=== PATIENT | female | born 1965 | race Caucasian/White ===

== ENCOUNTER 2019-07-01 17:49 | Inpatient (IN) | payer BC ==
[~2019-07-01] VITALS: Ht 165.1 cm; Wt 103.9 kg
[2019-07-01 20:05] VITALS: BP 130/67
[2019-07-01 23:51] VITALS: BP 101/55
[2019-07-02 03:32] VITALS: BP 116/72
[2019-07-02] MEDS ORDERED: ACETAMINOPHEN 325 MG TABLET. PO PRN (06:15)
[2019-07-02] MEDS ORDERED: MAG HYDROX/ALUMINUM HYD/SIMETH 30 ML ORAL.SUSP PO PRN (06:15)
[2019-07-02] MEDS ORDERED: ONDANSETRON PF 4 MG/2 ML VIAL. IVP PRN (06:15)
[2019-07-02] MEDS ORDERED: ALBUTEROL SULFATE 2.5 MG/3 ML NEBU. NEB PRN (06:15)
[2019-07-02] MEDS ORDERED: HYDR-2145 PO (06:39)
[2019-07-02] MEDS ORDERED: LISI-130 PO (06:39)
[2019-07-02] MEDS ORDERED: ALBU2.5V14 NEB (06:39)
[2019-07-02] MEDS ORDERED: LORA10TA3 PO (06:39)
[2019-07-02] MEDS ORDERED: AMLO10TA8 PO (06:39)
[2019-07-02 07:00] VITALS: BP 139/78
[2019-07-02] MEDS ORDERED: IV RINGERS,LACTATED 1000ML 1,000 ML IV SCH (07:33)
[2019-07-02 07:43] LABS: BASO # 0.1 x10^3/uL (0.0-0.2); BASO % 1 % (0-3); EOS # 0.2 x10^3/uL (0.0-0.7); EOS % 1 % (0-3); HEMATOCRIT 34.8 % (36.0-47.0); HEMOGLOBIN 11.4 g/dL (12.0-15.5); LYMPH # 1.9 x10^3/uL (1.0-4.8); LYMPH % 12 % (24-48); MEAN CORPUSCULAR HEMOGLOBIN 29 pg (25-35); MEAN CORPUSCULAR HGB CONC 33 g/dL (31-37); MEAN CORPUSCULAR VOLUME 88 fL (79-100); MONO # 1.3 x10^3/uL (0.0-1.1); MONO % 8 % (0-9); NEUT # 12.7 x10^3/uL (1.8-7.7); NEUT % 78 % (31-73); PLATELET COUNT 709 x10^3/uL (140-400); RED BLOOD COUNT 3.98 x10^6/uL (3.50-5.40); RED CELL DISTRIBUTION WIDTH 14.5 % (11.5-14.5); WHITE BLOOD COUNT 16.2 x10^3/uL (4.0-11.0)
[2019-07-02] MEDS ORDERED: MORPHINE SULFATE 2 MG/ML VIAL. IV PRN (07:45)
[2019-07-02] MEDS ORDERED: HYDROmorphone 2 MG/ML VIAL IV PRN (07:45)
[2019-07-02] MEDS ORDERED: fentaNYL PF VIAL 100 MCG/2 ML VIAL IV PRN ×2 (07:45)
[2019-07-02] MEDS ORDERED: PROCHLORPERAZINE 10 MG/2 ML VIAL. IV PRN (07:45)
[2019-07-02] MEDS: IPRATRPIUM/ALBUTEROL 0.5/2.5MG 3 ML NEBU. NEB SCH ×4 (08:00→20:42)
[2019-07-02 08:02] LABS: ALBUMIN 1.7 g/dL (3.4-5.0); ALBUMIN/GLOBULIN RATIO 0.3 (1.0-1.7); CALCIUM 8.9 mg/dL (8.5-10.1); CREATININE 0.8 mg/dL (0.6-1.0); GFR 74.5; POTASSIUM 4.7 mmol/L (3.5-5.1); TOTAL BILIRUBIN 0.2 mg/dL (0.2-1.0); TOTAL PROTEIN 7.4 g/dL (6.4-8.2)
[2019-07-02 08:28] LABS: % BANDS 1 % (0-9); % EOS 2 % (0-5); % LYMPHS 14 % (24-48); % MONOS 6 % (0-10); % SEGS 77 % (35-66)
[2019-07-02 08:29] LABS: PLT ESTIMATE INCREASED (ADEQUATE)
[2019-07-02 08:30] LABS: POIKILOCYTOSIS SLIGHT; POLYCHROMASIA PRESENT
[2019-07-02] MEDS ORDERED: LIDOCAINE 1% Multi-Dose 20 ML VIAL. INJ PRN (08:30)
[2019-07-02] MEDS ORDERED: EPINEPHrine 1 MG/ML VIAL INJ PRN (08:30)
[2019-07-02] MEDS ORDERED: LIDOCAINE 2% VISCOUS 100 ML BOTTLE. MM PRN (08:30)
[2019-07-02] MEDS ORDERED: LIDOCAINE 4% TOPICAL 50 ML SOLUTION. MM PRN (08:30)
[2019-07-02] MEDS: VENLAFAXINE 75 MG TABLET. PO SCH ×3 (09:00→21:44)
[2019-07-02] MEDS: hydroCHLOROthiazide 25 MG TABLET PO SCH (09:00)
[2019-07-02] MEDS: MEROPENEM 1 GM in IV NORMAL SALINE 100ML 100 ML IV SCH ×3 (10:14→21:43)
[2019-07-02] MEDS ORDERED: LIDOCAINE 1% Multi-Dose 20 ML VIAL. ONE (10:16)
[2019-07-02] MEDS ORDERED: LIDOCAINE 4% TOPICAL 50 ML SOLUTION. ONE (10:16)
[2019-07-02] MEDS ORDERED: EPINEPHrine 1 MG/ML VIAL ONE (10:16)
[2019-07-02] MEDS ORDERED: LIDOCAINE 2% VISCOUS 100 ML BOTTLE. ONE (10:16)
[2019-07-02] MEDS ORDERED: PROPOFOL 20 ML IV ONE (11:18)
[2019-07-02] MEDS: IV RINGERS,LACTATED 1000ML 1,000 ML IV SCH ×2 (11:20→21:15)
--- NOTE | 2019-07-02 11:26 | NUR ---
SW following pt for dc planning. Chart reviewed. Pt lives at home with family. No notes to review at this time. SW will be available as needed.
--- NOTE | 2019-07-02 12:18 | PDOC ---
PULMONARY PROGRESS NOTES Vitals Vital Signs Date Time Temp Pulse Resp B/P (MAP) Pulse Ox O2 Delivery O2 Flow Rate FiO2 07/02/19 12:02 97.8 101 20 115/65 93 Simple Mask 10 97.8 Labs Laboratory Tests Test 07/02/19 07:25 White Blood Count 16.2 x10^3/uL (4.0-11.0) Red Blood Count 3.98 x10^6/uL (3.50-5.40) Hemoglobin 11.4 g/dL (12.0-15.5) Hematocrit 34.8 % (36.0-47.0) Mean Corpuscular Volume 88 fL (79-100) Mean Corpuscular Hemoglobin 29 pg (25-35) Mean Corpuscular Hemoglobin Concent 33 g/dL (31-37) Red Cell Distribution Width 14.5 % (11.5-14.5) Platelet Count 709 x10^3/uL (140-400) Neutrophils (%) (Auto) 78 % (31-73) Lymphocytes (%) (Auto) 12 % (24-48) Monocytes (%) (Auto) 8 % (0-9) Eosinophils (%) (Auto) 1 % (0-3) Basophils (%) (Auto) 1 % (0-3) Neutrophils # (Auto) 12.7 x10^3/uL (1.8-7.7) Lymphocytes # (Auto) 1.9 x10^3/uL (1.0-4.8) Monocytes # (Auto) 1.3 x10^3/uL (0.0-1.1) Eosinophils # (Auto) 0.2 x10^3/uL (0.0-0.7) Basophils # (Auto) 0.1 x10^3/uL (0.0-0.2) Segmented Neutrophils % 77 % (35-66) Band Neutrophils % 1 % (0-9) Lymphocytes % 14 % (24-48) Monocytes % 6 % (0-10) Eosinophils % 2 % (0-5) Platelet Estimate Increased (ADEQUATE) Polychromasia Present Poikilocytosis Slight Prothrombin Time 13.0 SEC (11.7-14.0) Prothromb Time International Ratio 1.0 (0.8-1.1) Activated Partial Thromboplast Time 28 SEC (24-38) Sodium Level 142 mmol/L (136-145) Potassium Level 4.7 mmol/L (3.5-5.1) Chloride Level 99 mmol/L (98-107) Carbon Dioxide Level 38 mmol/L (21-32) Anion Gap 5 (6-14) Blood Urea Nitrogen 14 mg/dL (7-20) Creatinine 0.8 mg/dL (0.6-1.0) Estimated GFR (Cockcroft-Gault) 74.5 BUN/Creatinine Ratio 18 (6-20) Glucose Level 96 mg/dL (70-99) Calcium Level 8.9 mg/dL (8.5-10.1) Total Bilirubin 0.2 mg/dL (0.2-1.0) Aspartate Amino Transf (AST/SGOT) 66 U/L (15-37) Alanine Aminotransferase (ALT/SGPT) 114 U/L (14-59) Alkaline Phosphatase 255 U/L (46-116) Total Protein 7.4 g/dL (6.4-8.2) Albumin 1.7 g/dL (3.4-5.0) Albumin/Globulin Ratio 0.3 (1.0-1.7) Laboratory Tests Test 07/02/19 07:25 White Blood Count 16.2 x10^3/uL (4.0-11.0) Red Blood Count 3.98 x10^6/uL (3.50-5.40) Hemoglobin 11.4 g/dL (12.0-15.5) Hematocrit 34.8 % (36.0-47.0) Mean Corpuscular Volume 88 fL (79-100) Mean Corpuscular Hemoglobin 29 pg (25-35) Mean Corpuscular Hemoglobin Concent 33 g/dL (31-37) Red Cell Distribution Width 14.5 % (11.5-14.5) Platelet Count 709 x10^3/uL (140-400) Neutrophils (%) (Auto) 78 % (31-73) Lymphocytes (%) (Auto) 12 % (24-48) Monocytes (%) (Auto) 8 % (0-9) Eosinophils (%) (Auto) 1 % (0-3) Basophils (%) (Auto) 1 % (0-3) Neutrophils # (Auto) 12.7 x10^3/uL (1.8-7.7) Lymphocytes # (Auto) 1.9 x10^3/uL (1.0-4.8) Monocytes # (Auto) 1.3 x10^3/uL (0.0-1.1) Eosinophils # (Auto) 0.2 x10^3/uL (0.0-0.7) Basophils # (Auto) 0.1 x10^3/uL (0.0-0.2) Segmented Neutrophils % 77 % (35-66) Band Neutrophils % 1 % (0-9) Lymphocytes % 14 % (24-48) Monocytes % 6 % (0-10) Eosinophils % 2 % (0-5) Platelet Estimate Increased (ADEQUATE) Polychromasia Present Poikilocytosis Slight Prothrombin Time 13.0 SEC (11.7-14.0) Prothromb Time International Ratio 1.0 (0.8-1.1) Activated Partial Thromboplast Time 28 SEC (24-38) Sodium Level 142 mmol/L (136-145) Potassium Level 4.7 mmol/L (3.5-5.1) Chloride Level 99 mmol/L (98-107) Carbon Dioxide Level 38 mmol/L (21-32) Anion Gap 5 (6-14) Blood Urea Nitrogen 14 mg/dL (7-20) Creatinine 0.8 mg/dL (0.6-1.0) Estimated GFR (Cockcroft-Gault) 74.5 BUN/Creatinine Ratio 18 (6-20) Glucose Level 96 mg/dL (70-99) Calcium Level 8.9 mg/dL (8.5-10.1) Total Bilirubin 0.2 mg/dL (0.2-1.0) Aspartate Amino Transf (AST/SGOT) 66 U/L (15-37) Alanine Aminotransferase (ALT/SGPT) 114 U/L (14-59) Alkaline Phosphatase 255 U/L (46-116) Total Protein 7.4 g/dL (6.4-8.2) Albumin 1.7 g/dL (3.4-5.0) Albumin/Globulin Ratio 0.3 (1.0-1.7) Medications Active Scripts Medications Dose Route/Sig Max Daily Dose Days Date Category Loratadine 10 Mg Tablet 10 Mg PO DAILY PRN 07/02/19 Reported Lisinopril 40 Mg Tablet 40 Mg PO DAILY 07/02/19 Reported Hydrochlorothiazide Tablet (Hydrochlorothiazide) 25 Mg Tablet 25 Mg PO DAILY 07/02/19 Reported Amlodipine Besylate 10 Mg Tablet 10 Mg PO DAILY 07/02/19 Reported Albuterol Sulfate Conc Neb Soln (Albuterol Sulfate) 2.5 Mg/0.5 Ml Vial.neb 2.5 Mg NEB Q6HRS 07/02/19 Reported Impression . FULL NOTE DICTATED WILL PROCEED WITH BRONCH AGREE WITH CURRENT RX FOR POST OB PNEUMONIA MILADY STRONG MD Jul 02, 2019 12:18
--- NOTE | 2019-07-02 12:23 | PDOC4 ---
PROCEDURE Procedure BRONCH/KEYES NEEDLE/FORCEPS BX/BAL FINDINGS ENDOBROCHIAL LESION MIRANDA FUNGATING WHITE IN COLOR SOME MUCUS SURROUNDING THE LESION CLEAR AIRWAYS ON RIGHT WILL AWAIT CYTOPATHOLOGY REPORT SUSPECT NON SMALL CELL CA NO COMPLICATIONS MILADY STRONG MD Jul 02, 2019 12:23
--- NOTE | 2019-07-02 12:36 | OP ---
DATE OF SURGERY: 07/02/2019 ATTENDING PHYSICIAN: Abdi Armstrong MD PROCEDURE: Bronchoscopy, Flores needle aspiration of a left upper lobe endobronchial lesion, multiple forceps biopsy taken from the same spot, plus lavage. INDICATIONS: The patient presented with an abnormal CT chest revealing possible left upper lobe endobronchial lesion, undergoing a diagnostic bronchoscopy. Risks, benefits, and alternatives reviewed with the patient. She consented. DESCRIPTION OF PROCEDURE: Timeout was performed prior to sedation. The patient was sedated by Anesthesia. O2 saturation and vital signs were maintained within normal limits throughout the procedure. The bronchoscope was passed through the left naris. The bronchoscope was advanced through the vocal cords, which appeared to be normal in function and nature. The vocal cords were anesthetized with a total of 5 mL of 4% lidocaine. The bronchoscope was then passed through the vocal cords into the proximal trachea which was normal. The distal trachea was likewise normal. The right segments and subsegments were visualized. There were no endobronchial lesions. Upon inspecting the left side, there was a total occlusion of the left upper lobe bronchus with a white fungating mass. Multiple biopsies were performed. Initially, I performed one Flores needle aspirate then utilized a forceps biopsy to obtain approximately 4-5 bites. The patient tolerated procedure well with no immediate complications. A lavage of the same area was performed. FINDINGS: 1. Normal vocal cords. 2. Endobronchial lesion obstructing the left upper lobe bronchus. Multiple biopsies performed. See above. 3. No endobronchial lesion on the right. 4. Minimal mucosa surrounding the endobronchial lesion that was aspirated back. PLAN: We will await the cytopathology report along with blood cultures. MILADY STRONG MD DR: TENA/tiarra JOB#: [id number] / [id number]
--- NOTE | 2019-07-02 13:39 | HP ---
ADMIT DATE: 07/01/2019 HISTORY OF PRESENT ILLNESS: The patient is a 54-year-old female patient, who was admitted directly from her primary care physician's office with a complaint of left side chest pain, shortness of breath, diaphoresis and dry cough. She apparently has had a chest x-ray done, which showed that she has consolidating infiltrate in the left upper lobe consistent with acute pneumonia and was started on antibiotic in the form of community-acquired pneumonia. Apparently, the patient denied any similar symptoms before. She has moved recently to live with her daughter from [place]. She is allergic to PENICILLIN, CEPHALOSPORINS and SULFA drugs, started her on meropenem as well as Zithromax and a CT scan was done which showed that there is abrupt cutoff of the left upper lobe bronchus with complete consolidation of the left upper lobe. Finding are favoring to represent an obstructing endobronchial lesion such as mucus plugging as well as obstructed infectious process is difficult to exclude. However, there is no evidence of pulmonary embolism and therefore, the patient was transferred to [facility] in consultation with Dr. Phillips with a plan to arrange for bronchoscopy. PAST MEDICAL HISTORY: Significant for chronic obstructive pulmonary disease, hypertension, osteoarthritis, and proteinuria. She apparently has also had hoarseness of voice and according to her, she has also had bronchoscopy done before. PAST SURGICAL HISTORY: Significant for cervical spine fusion. She has also had surgery on her nose and bilateral laryngectomy tube placement in both ears and she has also resection of pterygium from her left eye with some encroaching on her cornea. She also had tonsillectomy, right side oophorectomy, right breast lumpectomy, tubal ligation and 2 C-sections. ALLERGIES: She is allergic to PENICILLIN, SULFA DRUGS and CEFDINIR. MEDICATIONS: She is currently on loratadine 10 mg once a day, albuterol sulfate 2.5 mg by nebulizer every 6 hours, amlodipine 10 mg once a day, lisinopril 40 mg once a day, venlafaxine 150 mg once a day and venlafaxine 75 mg once a day. She is also on hydrochlorothiazide 25 mg once a day and omeprazole 40 mg once a day. FAMILY HISTORY: She has 2 brothers younger and healthy. Her father at age of 45 because of myocardial infarction. Her mother is still alive and is known to have hypertension, hyperlipidemia. SOCIAL HISTORY: She is . She has a daughter who is still alive, lives here with her. Her son has committed suicide when he was 27 years old. She smokes half a pack a day, drinks a glass of wine occasionally. Does not use any drugs. 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 REVIEW OF SYSTEMS: As per history of present illness. PHYSICAL EXAMINATION: GENERAL: On examining her this morning, she looked well and was clearly in no apparent respiratory distress. No pallor, jaundice, cyanosis or thyromegaly. No jugular venous distention. No lower limb edema. VITAL SIGNS: Her heart rate was 87, blood pressure was 115/65, temperature was 98, respiratory rate was 20, and oxygen saturation was 95% on 3 liters of oxygen. HEAD, EYES, EARS, NOSE AND THROAT: Showed normocephalic, atraumatic. NECK: Supple. HEART: Showed normal first and second heart sounds. No gallop or murmur. CHEST: Shows central trachea, reduced chest expansion, air entry on the left side with dull percussion noted posteriorly also bilateral scattered rhonchi. I could not appreciate any crepitation. ABDOMEN: Distended, soft, nontender. NEUROLOGIC: She was awake, alert, responding appropriately. All cranial nerves intact. EXTREMITIES: She moves extremities without difficulty. LABORATORY DATA: Her white cell count was 16,200, hemoglobin 11, hematocrit 34, MCV 88 and platelet count of 709,000. Her serum sodium was 142, potassium 4.7, chloride 99, bicarbonate 38, anion gap of 5, BUN 14, creatinine 0.8, estimated GFR was 74 mL per minute. Her glucose was 96, calcium was 8.9. Total bilirubin is normal; however, AST, ALT, alkaline phosphatase are all elevated. Total protein was 7.4, albumin was 1.7. Her prothrombin time, INR and aPTT were normal. ASSESSMENT AND PLAN: In summary, this is a 54-year-old female patient, who was admitted with community-acquired pneumonia; however, her CT scan of the chest showed abrupt cutoff of the left upper lobe bronchus with complete consolidation of the left upper lobe, finding consistent with obstructing endobronchial lesion. We have scheduled her for a bronchoscopy as recommended by Dr. Phillips and kept her n.p.o. REJI MACK MD DR: Tram JOB#: [id number] / [id number]
[2019-07-02] MEDS: LISINOPRIL 20 MG TABLET PO SCH (14:27)
[2019-07-02] MEDS: LACTOBACILLUS RHAMNOSUS GG 1 CAPSULE. PO SCH ×2 (14:28→21:43)
[2019-07-02] MEDS: AZITHROMYCIN 250 MG TABLET. PO SCH (14:28)
[2019-07-02] MEDS: CETIRIZINE HCL 10 MG TABLET. PO SCH (14:28)
[2019-07-02] MEDS: PANTOPRAZOLE 40 MG TABLET.DR. PO SCH (14:28)
[2019-07-02] MEDS: amLODIPine BESYLATE 10 MG TABLET PO SCH (14:29)
[2019-07-02] MEDS: methylPREDNISolone SOD SUCC PF 40 MG/ML VIAL. IV SCH ×2 (14:30→21:44)
[2019-07-02] MEDS: ENOXAPARIN 40 MG/0.4 ML SYRINGE. SQ SCH (14:30)
[2019-07-02] MEDS: LIDOCAINE (700MG/PATCH) PATCH. TD SCH (14:40)
[2019-07-02] MEDS: HYDROcodone/APAP 5/325MG 1 TAB TABLET PO PRN (14:40)
[2019-07-02 15:00] VITALS: BP 136/67
--- NOTE | 2019-07-02 16:59 | CONS ---
DATE OF CONSULTATION: ATTENDING PHYSICIAN: Abdi Armstrong MD REASON FOR CONSULTATION: The patient is seen in pulmonary consultation at the request of Dr. Armstrong for possible left-sided endobronchial lesion. HISTORY OF PRESENT ILLNESS: The patient presented with clinical symptoms and signs of pneumonia, increasing shortness of breath, fever, some chills. She had a cough, mostly nonproductive. No hemoptysis. She was evaluated at [facility] with a CT scan, which revealed possible left upper lobe endobronchial lesion. She was transferred for advanced care to [facility]. She is currently awake, alert, following command. She states that she is feeling better. She is receiving some antibiotics for the possibility of postobstructive pneumonia. PAST MEDICAL HISTORY: Remarkable for COPD with underlying tobacco dependence. She experiences approximately 2 exacerbations per year. She does utilize metered dose inhalers at home, no oxygen. Otherwise, she has a history of hypertension, some chronic pain, arthritis, depression, anxiety. No prior history of myocardial infarction. PAST SURGICAL HISTORY: Status post appendectomy. ALLERGIES: PENICILLIN, SULFA, CEPHALOSPORINS AND ____. SOCIAL HISTORY: She continues to smoke. FAMILY HISTORY: No family history of lung cancer. MEDICATIONS: Current medication list was reviewed. REVIEW OF SYSTEMS: CONSTITUTIONAL: Subjective fever. EYES: No change in visual acuity. HEENT: No nasal congestion or sore throat. PULMONARY: As indicated above. CARDIOVASCULAR: No chest pain. No pressure. GASTROINTESTINAL: No nausea, vomiting, diarrhea. GENITOURINARY: No dysuria or frequency. MUSCULOSKELETAL: No localized muscle aches or joint pains. SKIN: No new skin rashes. NEUROLOGIC: No headaches, diplopia or blurred vision. PHYSICAL EXAMINATION: VITAL SIGNS: T-max was 98.72 liters of oxygen supplementation, no respiratory distress. HEENT: Eyes, the sclerae were nonicteric. NECK: Jugular venous distention was not elevated. No lymphadenopathy. CHEST: Full expansion. LUNGS: Adequate airway flow. She had wheezing unilateral left side with coarse breath sounds. CARDIOVASCULAR: Regular rate and rhythm with S1, S2, no S3. ABDOMEN: Soft, nontender, nondistended. EXTREMITIES: No clubbing, cyanosis or edema. NEUROLOGIC: The patient was awake, alert, following commands. A detailed neuro exam was not performed. LABORATORY DATA: Reviewed. White count was elevated. Hemoglobin and hematocrit were noted. Electrolytes were noted. BUN and creatinine were normal. Liver chemistries were elevated. Albumin was low. IMPRESSION: 1. Abnormal CT revealing left upper lobe possible endobronchial lesion versus mucus. 2. Postobstructive pneumonia. 3. Acute exacerbation of chronic obstructive pulmonary disease. 4. Tobacco dependence. 5. Other comorbidities as indicated above. 6. Protein malnutrition, present upon admission. 7. Elevated liver chemistries. 8. Leukocytosis. PLAN: 1. I reviewed the risks, benefits and alternatives with the patient. We will proceed with a diagnostic bronchoscopy. 2. Continue current medical management including antibiotics and steroids along with bronchodilators. 3. We will defer further workup of the elevated liver chemistries to Dr. Armstrong. 4. The patient instructed on the importance of discontinuing tobacco use. I do appreciate the privilege in sharing in the patient's care. MILADY STRONG MD DR: TENA/tiarra JOB#: [id number] / [id number] MORENO Love MD
[2019-07-02 19:16] VITALS: BP 122/72
[2019-07-02] MEDS: PATCH REMOVAL. MC SCH (21:00)
[2019-07-02 23:33] VITALS: BP 102/53
[2019-07-03 03:23] VITALS: BP 107/68
[2019-07-03 05:00] LABS: HEMATOCRIT 34.8 % (36.0-47.0); HEMOGLOBIN 11.2 g/dL (12.0-15.5); RED BLOOD COUNT 3.95 x10^6/uL (3.50-5.40); RED CELL DISTRIBUTION WIDTH 14.4 % (11.5-14.5); WHITE BLOOD COUNT 16.7 x10^3/uL (4.0-11.0)
[2019-07-03 05:43] LABS: CALCIUM 9.1 mg/dL (8.5-10.1); CREATININE 0.8 mg/dL (0.6-1.0); GFR 74.5; POTASSIUM 4.9 mmol/L (3.5-5.1)
[2019-07-03] MEDS: methylPREDNISolone SOD SUCC PF 40 MG/ML VIAL. IV SCH ×2 (06:39→13:39)
[2019-07-03] MEDS: MEROPENEM 1 GM in IV NORMAL SALINE 100ML 100 ML IV SCH ×3 (06:39→21:47)
[2019-07-03 07:00] VITALS: BP 117/63
[2019-07-03] MEDS: IPRATRPIUM/ALBUTEROL 0.5/2.5MG 3 ML NEBU. NEB SCH ×4 (08:05→19:26)
[2019-07-03] MEDS: LIDOCAINE (700MG/PATCH) PATCH. TD SCH (09:00)
[2019-07-03] MEDS: hydroCHLOROthiazide 25 MG TABLET PO SCH (09:00)
[2019-07-03] MEDS: LISINOPRIL 20 MG TABLET PO SCH (09:24)
[2019-07-03] MEDS: VENLAFAXINE 75 MG TABLET. PO SCH ×3 (09:25→21:41)
[2019-07-03] MEDS: LACTOBACILLUS RHAMNOSUS GG 1 CAPSULE. PO SCH ×2 (09:25→21:40)
[2019-07-03] MEDS: PANTOPRAZOLE 40 MG TABLET.DR. PO SCH (09:26)
[2019-07-03] MEDS: CETIRIZINE HCL 10 MG TABLET. PO SCH (09:26)
[2019-07-03] MEDS: amLODIPine BESYLATE 10 MG TABLET PO SCH (09:26)
[2019-07-03] MEDS: AZITHROMYCIN 250 MG TABLET. PO SCH (09:27)
[2019-07-03] MEDS: ENOXAPARIN 40 MG/0.4 ML SYRINGE. SQ SCH (09:28)
[2019-07-03] MEDS: IV RINGERS,LACTATED 1000ML 1,000 ML IV SCH (09:32)
[2019-07-03 11:00] VITALS: BP 142/77
[2019-07-03] MEDS: HYDROcodone/APAP 5/325MG 1 TAB TABLET PO PRN ×2 (12:22→21:41)
--- NOTE | 2019-07-03 12:43 | PDOC ---
PULMONARY PROGRESS NOTES Subjective 54 yo female smoker since age 12.The patient presented with clinical symptoms and signs of pneumonia, increasing shortness of breath, fever, some chills. She was evaluated at [facility] with a CT scan, which revealed possible left upper lobe endobronchial lesion. She is receiving some antibiotics for the possibility of postobstructive pneumonia. She underwent bronchoscopy on 07/02 with MIRANDA endobronchial obstruction by apparent tumor. biopsies taken, results pending. since bronchoscopy, feeling better. no hemoptysis. no increased shortness of breath. chest pain better. Vitals Vital Signs Date Time Temp Pulse Resp B/P (MAP) Pulse Ox O2 Delivery O2 Flow Rate FiO2 07/03/19 12:22 94 Nasal Cannula 3.0 07/03/19 11:00 97.6 83 18 142/77 (98) 97.6 ROS: No Nausea, No Chest Pain, No Abdominal Pain General: Alert, Oriented X4, No acute distress Lungs: Other (diminished breath sounds left anterior chest) Cardiovascular: S1, S2 Abdomen: Soft Neuro Exam: Alert, Oriented Extremities: No Edema Skin: Warm Labs Laboratory Tests Test 07/02/19 07:25 07/03/19 03:50 White Blood Count 16.2 x10^3/uL (4.0-11.0) 16.7 x10^3/uL (4.0-11.0) Red Blood Count 3.98 x10^6/uL (3.50-5.40) 3.95 x10^6/uL (3.50-5.40) Hemoglobin 11.4 g/dL (12.0-15.5) 11.2 g/dL (12.0-15.5) Hematocrit 34.8 % (36.0-47.0) 34.8 % (36.0-47.0) Mean Corpuscular Volume 88 fL (79-100) 88 fL (79-100) Mean Corpuscular Hemoglobin 29 pg (25-35) 28 pg (25-35) Mean Corpuscular Hemoglobin Concent 33 g/dL (31-37) 32 g/dL (31-37) Red Cell Distribution Width 14.5 % (11.5-14.5) 14.4 % (11.5-14.5) Platelet Count 709 x10^3/uL (140-400) 700 x10^3/uL (140-400) Neutrophils (%) (Auto) 78 % (31-73) Lymphocytes (%) (Auto) 12 % (24-48) Monocytes (%) (Auto) 8 % (0-9) Eosinophils (%) (Auto) 1 % (0-3) Basophils (%) (Auto) 1 % (0-3) Neutrophils # (Auto) 12.7 x10^3/uL (1.8-7.7) Lymphocytes # (Auto) 1.9 x10^3/uL (1.0-4.8) Monocytes # (Auto) 1.3 x10^3/uL (0.0-1.1) Eosinophils # (Auto) 0.2 x10^3/uL (0.0-0.7) Basophils # (Auto) 0.1 x10^3/uL (0.0-0.2) Segmented Neutrophils % 77 % (35-66) Band Neutrophils % 1 % (0-9) Lymphocytes % 14 % (24-48) Monocytes % 6 % (0-10) Eosinophils % 2 % (0-5) Platelet Estimate Increased (ADEQUATE) Polychromasia Present Poikilocytosis Slight Prothrombin Time 13.0 SEC (11.7-14.0) Prothromb Time International Ratio 1.0 (0.8-1.1) Activated Partial Thromboplast Time 28 SEC (24-38) Sodium Level 142 mmol/L (136-145) 140 mmol/L (136-145) Potassium Level 4.7 mmol/L (3.5-5.1) 4.9 mmol/L (3.5-5.1) Chloride Level 99 mmol/L (98-107) 100 mmol/L (98-107) Carbon Dioxide Level 38 mmol/L (21-32) 35 mmol/L (21-32) Anion Gap 5 (6-14) 5 (6-14) Blood Urea Nitrogen 14 mg/dL (7-20) 22 mg/dL (7-20) Creatinine 0.8 mg/dL (0.6-1.0) 0.8 mg/dL (0.6-1.0) Estimated GFR (Cockcroft-Gault) 74.5 74.5 BUN/Creatinine Ratio 18 (6-20) Glucose Level 96 mg/dL (70-99) 181 mg/dL (70-99) Calcium Level 8.9 mg/dL (8.5-10.1) 9.1 mg/dL (8.5-10.1) Total Bilirubin 0.2 mg/dL (0.2-1.0) Aspartate Amino Transf (AST/SGOT) 66 U/L (15-37) Alanine Aminotransferase (ALT/SGPT) 114 U/L (14-59) Alkaline Phosphatase 255 U/L (46-116) Total Protein 7.4 g/dL (6.4-8.2) Albumin 1.7 g/dL (3.4-5.0) Albumin/Globulin Ratio 0.3 (1.0-1.7) Laboratory Tests Test 07/03/19 03:50 White Blood Count 16.7 x10^3/uL (4.0-11.0) Red Blood Count 3.95 x10^6/uL (3.50-5.40) Hemoglobin 11.2 g/dL (12.0-15.5) Hematocrit 34.8 % (36.0-47.0) Mean Corpuscular Volume 88 fL (79-100) Mean Corpuscular Hemoglobin 28 pg (25-35) Mean Corpuscular Hemoglobin Concent 32 g/dL (31-37) Red Cell Distribution Width 14.4 % (11.5-14.5) Platelet Count 700 x10^3/uL (140-400) Sodium Level 140 mmol/L (136-145) Potassium Level 4.9 mmol/L (3.5-5.1) Chloride Level 100 mmol/L (98-107) Carbon Dioxide Level 35 mmol/L (21-32) Anion Gap 5 (6-14) Blood Urea Nitrogen 22 mg/dL (7-20) Creatinine 0.8 mg/dL (0.6-1.0) Estimated GFR (Cockcroft-Gault) 74.5 Glucose Level 181 mg/dL (70-99) Calcium Level 9.1 mg/dL (8.5-10.1) Medications Active Scripts Medications Dose Route/Sig Max Daily Dose Days Date Category Loratadine 10 Mg Tablet 10 Mg PO DAILY PRN 07/02/19 Reported Lisinopril 40 Mg Tablet 40 Mg PO DAILY 07/02/19 Reported Hydrochlorothiazide Tablet (Hydrochlorothiazide) 25 Mg Tablet 25 Mg PO DAILY 07/02/19 Reported Amlodipine Besylate 10 Mg Tablet 10 Mg PO DAILY 07/02/19 Reported Albuterol Sulfate Conc Neb Soln (Albuterol Sulfate) 2.5 Mg/0.5 Ml Vial.neb 2.5 Mg NEB Q6HRS 07/02/[address] exam with MIRANDA obstruction and MIRANDA collapse/infiltrate Impression . 1. 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 Postobstructive pneumonia. 3. Acute exacerbation of chronic obstructive pulmonary disease. 4. Tobacco dependence. 5. Other comorbidities as indicated above. 6. Protein malnutrition, present upon admission. 7. Elevated liver chemistries. 8. Leukocytosis. Plan . Agree with present therapy of antibiotics, bronchodilators and low flow oxygen. I discussed bronchoscopy with Ms. Denton Will follow. KEENAN SHELTON MD Jul 03, 2019 12:43
--- NOTE | 2019-07-03 13:32 | PN ---
DATE: 07/03/2019 SUBJECTIVE: The patient is sitting at the edge of the bed comfortably in no apparent distress. She continued to have cough, which is mostly dry and left-sided chest pain, although less intense. The chest tightness, wheezing has improved. PHYSICAL EXAMINATION: GENERAL: When I examined her today, she looked well and was clearly in no apparent respiratory distress, slightly pale, no jaundice, cyanosis or thyromegaly. No jugular venous distention. No limb edema. VITAL SIGNS: Her heart rate was 83, blood pressure was 142/77, temperature was 97.6, respiratory rate was 18 and oxygen saturation was 94% on 3 liters of oxygen. HEAD, EYES, EARS, NOSE AND THROAT: Showed normocephalic, atraumatic. NECK: Supple. HEART: Showed normal first and second heart sounds. No gallop or murmur. CHEST: Clear to auscultation. No crepitation or rhonchi. ABDOMEN: Distended, soft, nontender. No guarding or rigidity. No organomegaly. All hernial orifices intact. Bowel sounds normal. NEUROLOGIC: She is awake, alert, responding appropriately. All cranial nerves intact. She moves her extremities without difficulty. She ambulates without assistance or assistive device. Her intake over the last 24 hours was 1414, no output was recorded. LABORATORY DATA: Her lab work this morning showed a white cell count of 16,700, hemoglobin 11, hematocrit 34, MCV 88 and platelet count of 700,000. Her chemistry showed a serum sodium 140, potassium 4.9, chloride 100, bicarbonate 35, anion gap of 5, BUN 22, creatinine 0.8, estimated GFR was 74 mL per minute. Her glucose was 181, calcium was 9.1. Prothrombin time, INR and aPTT are all normal. ASSESSMENT: 1. Left upper lobe pneumonia, probable bronchogenic carcinoma. She underwent bronchoscopy and biopsy, the result of which is still pending at the time of this dictation. 2. Postobstructive pneumonia. 3. Acute exacerbation of chronic obstructive pulmonary disease. Other medical problems include hypertension, osteoarthritis, proteinuria. She also has had history of hoarseness of voice for which she has had a bronchoscopy done before. PLAN: My plan is to continue with steroids, continue with IV. I will discontinue IV fluid and I will check also the hepatitis panel tomorrow and I will cut down her steroids to twice a day and hopefully discharge her home on Friday morning. REJI MACK MD DR: CALVIN/tiarra JOB#: [id number] / [id number]
[2019-07-03 15:00] VITALS: BP 106/41
[2019-07-03 19:49] VITALS: BP 123/73
[2019-07-03] MEDS: PATCH REMOVAL. MC SCH (21:00)
[2019-07-03 23:51] VITALS: BP 124/75
[2019-07-04] MEDS: methylPREDNISolone SOD SUCC PF 40 MG/ML VIAL. IV SCH ×2 (01:53→14:32)
[2019-07-04] MEDS: MORPHINE SULFATE 4 MG/ML VIAL. IV PRN ×3 (01:57→19:22)
[2019-07-04 03:51] VITALS: BP 118/68
[2019-07-04 05:46] LABS: ALBUMIN 1.9 g/dL (3.4-5.0); ALBUMIN/GLOBULIN RATIO 0.4 (1.0-1.7); CALCIUM 8.7 mg/dL (8.5-10.1); CREATININE 0.9 mg/dL (0.6-1.0); POTASSIUM 4.9 mmol/L (3.5-5.1); TOTAL BILIRUBIN 0.1 mg/dL (0.2-1.0); TOTAL PROTEIN 7.3 g/dL (6.4-8.2)
[2019-07-04] MEDS: MEROPENEM 1 GM in IV NORMAL SALINE 100ML 100 ML IV SCH ×3 (06:25→21:58)
[2019-07-04] MEDS: HYDROcodone/APAP 5/325MG 1 TAB TABLET PO PRN ×3 (06:26→23:58)
[2019-07-04 07:00] VITALS: BP 148/83
[2019-07-04] MEDS: IPRATRPIUM/ALBUTEROL 0.5/2.5MG 3 ML NEBU. NEB SCH ×4 (08:31→20:07)
[2019-07-04] MEDS: VENLAFAXINE 75 MG TABLET. PO SCH ×3 (08:38→20:22)
[2019-07-04] MEDS: LACTOBACILLUS RHAMNOSUS GG 1 CAPSULE. PO SCH ×2 (08:38→20:22)
[2019-07-04] MEDS: PANTOPRAZOLE 40 MG TABLET.DR. PO SCH (08:38)
[2019-07-04] MEDS: amLODIPine BESYLATE 10 MG TABLET PO SCH (08:38)
[2019-07-04] MEDS: AZITHROMYCIN 250 MG TABLET. PO SCH (08:39)
[2019-07-04] MEDS: LISINOPRIL 20 MG TABLET PO SCH (08:39)
[2019-07-04] MEDS: CETIRIZINE HCL 10 MG TABLET. PO SCH (08:39)
[2019-07-04] MEDS: ENOXAPARIN 40 MG/0.4 ML SYRINGE. SQ SCH (08:40)
[2019-07-04] MEDS: hydroCHLOROthiazide 25 MG TABLET PO SCH (08:45)
[2019-07-04] MEDS: LIDOCAINE (700MG/PATCH) PATCH. TD SCH (08:45)
[2019-07-04 11:00] VITALS: BP 135/67
--- NOTE | 2019-07-04 12:43 | PDOC ---
PULMONARY PROGRESS NOTES Subjective 54 yo female smoker since age 12.The patient presented with clinical symptoms and signs of pneumonia, increasing shortness of breath, fever, some chills. She was evaluated at [facility] with a CT scan, which revealed possible left upper lobe endobronchial lesion. She is receiving some antibiotics for the possibility of postobstructive pneumonia. She underwent bronchoscopy on 07/02 with MIRANDA endobronchial obstruction by apparent tumor. biopsies taken, results pending. since bronchoscopy, feeling better. no hemoptysis. no increased shortness of breath. chest pain better. Vitals Vital Signs Date Time Temp Pulse Resp B/P (MAP) Pulse Ox O2 Delivery O2 Flow Rate FiO2 07/04/19 11:17 98 Nasal Cannula 2.0 07/04/19 11:00 97.4 73 16 135/67 (89) 97.4 ROS: No Nausea, No Chest Pain, No Abdominal Pain General: Alert, Oriented X4, No acute distress Lungs: Other (diminished breath sounds left anterior chest) Cardiovascular: S1, S2 Abdomen: Soft Neuro Exam: Alert, Oriented Extremities: No Edema Skin: Warm Labs Laboratory Tests Test 07/03/19 03:50 07/04/19 04:05 White Blood Count 16.7 x10^3/uL (4.0-11.0) Red Blood Count 3.95 x10^6/uL (3.50-5.40) Hemoglobin 11.2 g/dL (12.0-15.5) Hematocrit 34.8 % (36.0-47.0) Mean Corpuscular Volume 88 fL (79-100) Mean Corpuscular Hemoglobin 28 pg (25-35) Mean Corpuscular Hemoglobin Concent 32 g/dL (31-37) Red Cell Distribution Width 14.4 % (11.5-14.5) Platelet Count 700 x10^3/uL (140-400) Sodium Level 140 mmol/L (136-145) 142 mmol/L (136-145) Potassium Level 4.9 mmol/L (3.5-5.1) 4.9 mmol/L (3.5-5.1) Chloride Level 100 mmol/L (98-107) 104 mmol/L (98-107) Carbon Dioxide Level 35 mmol/L (21-32) 32 mmol/L (21-32) Anion Gap 5 (6-14) 6 (6-14) Blood Urea Nitrogen 22 mg/dL (7-20) 26 mg/dL (7-20) Creatinine 0.8 mg/dL (0.6-1.0) 0.9 mg/dL (0.6-1.0) Estimated GFR (Cockcroft-Gault) 74.5 65.0 Glucose Level 181 mg/dL (70-99) 121 mg/dL (70-99) Calcium Level 9.1 mg/dL (8.5-10.1) 8.7 mg/dL (8.5-10.1) BUN/Creatinine Ratio 29 (6-20) Total Bilirubin 0.1 mg/dL (0.2-1.0) Aspartate Amino Transf (AST/SGOT) 172 U/L (15-37) Alanine Aminotransferase (ALT/SGPT) 241 U/L (14-59) Alkaline Phosphatase 212 U/L (46-116) Total Protein 7.3 g/dL (6.4-8.2) Albumin 1.9 g/dL (3.4-5.0) Albumin/Globulin Ratio 0.4 (1.0-1.7) Laboratory Tests Test 07/04/19 04:05 Sodium Level 142 mmol/L (136-145) Potassium Level 4.9 mmol/L (3.5-5.1) Chloride Level 104 mmol/L (98-107) Carbon Dioxide Level 32 mmol/L (21-32) Anion Gap 6 (6-14) Blood Urea Nitrogen 26 mg/dL (7-20) Creatinine 0.9 mg/dL (0.6-1.0) Estimated GFR (Cockcroft-Gault) 65.0 BUN/Creatinine Ratio 29 (6-20) Glucose Level 121 mg/dL (70-99) Calcium Level 8.7 mg/dL (8.5-10.1) Total Bilirubin 0.1 mg/dL (0.2-1.0) Aspartate Amino Transf (AST/SGOT) 172 U/L (15-37) Alanine Aminotransferase (ALT/SGPT) 241 U/L (14-59) Alkaline Phosphatase 212 U/L (46-116) Total Protein 7.3 g/dL (6.4-8.2) Albumin 1.9 g/dL (3.4-5.0) Albumin/Globulin Ratio 0.4 (1.0-1.7) Medications Active Scripts Medications Dose Route/Sig Max Daily Dose Days Date Category Loratadine 10 Mg Tablet 10 Mg PO DAILY PRN 07/02/19 Reported Lisinopril 40 Mg Tablet 40 Mg PO DAILY 07/02/19 Reported Hydrochlorothiazide Tablet (Hydrochlorothiazide) 25 Mg Tablet 25 Mg PO DAILY 07/02/19 Reported Amlodipine Besylate 10 Mg Tablet 10 Mg PO DAILY 07/02/19 Reported Albuterol Sulfate Conc Neb Soln (Albuterol Sulfate) 2.5 Mg/0.5 Ml Vial.neb 2.5 Mg NEB Q6HRS 07/02/[address] exam with MIRANDA obstruction and MIRANDA collapse/infiltrate Impression . 1. 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 Postobstructive pneumonia. 3. Acute exacerbation of chronic obstructive pulmonary disease. 4. Tobacco dependence. 5. Other comorbidities as indicated above. 6. Protein malnutrition, present upon admission. 7. Elevated liver chemistries. 8. Leukocytosis. Plan . Agree with present therapy of antibiotics, bronchodilators and low flow oxygen. I discussed bronchoscopy findings with Ms. Denton yesterday Will follow. KEENAN SHELTON MD Jul 04, 2019 12:43
--- NOTE | 2019-07-04 13:58 | PN ---
DATE: 07/04/2019 SUBJECTIVE: The patient is resting, sitting at the edge of the bed comfortably, in no apparent distress. She continued to have cough that is mostly dry. Has also left-sided chest pain, although it is less intense. PHYSICAL EXAMINATION: GENERAL: When I examined her, she looked pale. No jaundice, cyanosis or thyromegaly. No jugular venous distension. No lower limb edema. VITAL SIGNS: Her heart rate was 78, blood pressure 118/68, temperature was 97.6, respiratory rate was 16 and oxygen saturation was 98% on 2 liters of oxygen. HEAD, EYES, EARS, NOSE AND THROAT: Showed normocephalic, atraumatic. NECK: Supple. HEART: Showed normal first and second heart sounds. No gallop, rub or murmur. CHEST: Clear to auscultation. No crepitation or rhonchi. ABDOMEN: Distended, soft, nontender. NEUROLOGIC: She is awake, alert, responding appropriately. All cranial nerves intact. She moves extremities without difficulty. LABORATORY DATA: As of this morning showed a serum sodium 142, potassium 4.9, chloride 104, bicarbonate 32, anion gap of 6, BUN 26, creatinine 0.9, estimated GFR was 65 mL per minute, her glucose 121, calcium was 8.7. Total bilirubin, AST and ALT are elevated; however, total protein was 7.3, albumin was 1.9. Her white cell count was 16,700, hemoglobin 11, hematocrit 34, MCV 88 and platelet count of 700,000. Her prothrombin time was 13, INR 1, aPTT was 28. ASSESSMENT: 1. 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 She underwent bronchoscopy and biopsy results were still pending at the time of this dictation. 2. Postobstructive pneumonia. 3. Acute exacerbation of chronic obstructive pulmonary disease. 4. Other medical problems include: A. Hypertension. B. Osteoarthritis. C. Heavy proteinuria. D. History of hoarseness of voice, for which she has had a bronchoscopy done before. E. Abnormal liver enzymes. I did hepatitis serology, the result of which is still pending at the time of this dictation. PLAN: To continue with IV steroids, continue with IV antibiotic. Await hepatitis panel tomorrow and await the result of the biopsy to decide on further management. REJI MACK MD DR: Tram JOB#: [id number] / [id number]
[2019-07-04 15:00] VITALS: BP 118/60
[2019-07-04 19:48] VITALS: BP 121/67
[2019-07-04] MEDS: PATCH REMOVAL. MC SCH (20:21)
[2019-07-04 23:51] VITALS: BP 113/42
[2019-07-05] MEDS: methylPREDNISolone SOD SUCC PF 40 MG/ML VIAL. IV SCH ×2 (02:34→14:32)
[2019-07-05] MEDS: MORPHINE SULFATE 4 MG/ML VIAL. IV PRN ×3 (02:39→20:15)
[2019-07-05 03:46] VITALS: BP 140/61
[2019-07-05] MEDS: MEROPENEM 1 GM in IV NORMAL SALINE 100ML 100 ML IV SCH ×3 (06:25→23:16)
[2019-07-05] MEDS: HYDROcodone/APAP 5/325MG 1 TAB TABLET PO PRN (06:26)
[2019-07-05 07:59] VITALS: BP 126/57
[2019-07-05] MEDS: IPRATRPIUM/ALBUTEROL 0.5/2.5MG 3 ML NEBU. NEB SCH ×4 (08:30→20:08)
--- NOTE | 2019-07-05 08:43 | PDOC ---
PULMONARY PROGRESS NOTES Subjective PT FEELS BETTER LESS SOA, CHEST PAIN AND COUGH Vitals Vital Signs Date Time Temp Pulse Resp B/P (MAP) Pulse Ox O2 Delivery O2 Flow Rate FiO2 07/05/19 08:31 97 Nasal Cannula 2.0 07/05/19 07:59 98.5 75 20 126/57 (80) 98.5 ROS: No Nausea, No Chest Pain, No Abdominal Pain General: Alert, Oriented X4, No acute distress Lungs: Other (diminished breath sounds left anterior chest) Cardiovascular: S1, S2 Abdomen: Soft Neuro Exam: Alert, Oriented Extremities: No Edema Skin: Warm Labs Laboratory Tests Test 07/04/19 04:05 Sodium Level 142 mmol/L (136-145) Potassium Level 4.9 mmol/L (3.5-5.1) Chloride Level 104 mmol/L (98-107) Carbon Dioxide Level 32 mmol/L (21-32) Anion Gap 6 (6-14) Blood Urea Nitrogen 26 mg/dL (7-20) Creatinine 0.9 mg/dL (0.6-1.0) Estimated GFR (Cockcroft-Gault) 65.0 BUN/Creatinine Ratio 29 (6-20) Glucose Level 121 mg/dL (70-99) Calcium Level 8.7 mg/dL (8.5-10.1) Total Bilirubin 0.1 mg/dL (0.2-1.0) Aspartate Amino Transf (AST/SGOT) 172 U/L (15-37) Alanine Aminotransferase (ALT/SGPT) 241 U/L (14-59) Alkaline Phosphatase 212 U/L (46-116) Total Protein 7.3 g/dL (6.4-8.2) Albumin 1.9 g/dL (3.4-5.0) Albumin/Globulin Ratio 0.4 (1.0-1.7) Medications Active Scripts Medications Dose Route/Sig Max Daily Dose Days Date Category Loratadine 10 Mg Tablet 10 Mg PO DAILY PRN 07/02/19 Reported Lisinopril 40 Mg Tablet 40 Mg PO DAILY 07/02/19 Reported Hydrochlorothiazide Tablet (Hydrochlorothiazide) 25 Mg Tablet 25 Mg PO DAILY 07/02/19 Reported Amlodipine Besylate 10 Mg Tablet 10 Mg PO DAILY 07/02/19 Reported Albuterol Sulfate Conc Neb Soln (Albuterol Sulfate) 2.5 Mg/0.5 Ml Vial.neb 2.5 Mg NEB Q6HRS 07/02/[address] exam with MIRANDA obstruction and MIRANDA collapse/infiltrate Impression . 1. 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 Postobstructive pneumonia. 3. Acute exacerbation of chronic obstructive pulmonary disease. 4. Tobacco dependence. 5. Other comorbidities as indicated above. 6. Protein malnutrition, present upon admission. 7. Elevated liver chemistries. 8. Leukocytosis. Plan . WILL CONTINUE THE SAME POSSIBLE D/C IN AM OK BY ME FOLLOW UP IN MY OFFICE NEXT WEEK WILL NEED PFT, FINAL PATH REPORT MILADY STRONG MD Jul 05, 2019 08:43
[2019-07-05] MEDS: LIDOCAINE (700MG/PATCH) PATCH. TD SCH (09:00)
[2019-07-05] MEDS: ENOXAPARIN 40 MG/0.4 ML SYRINGE. SQ SCH (09:21)
[2019-07-05] MEDS: LACTOBACILLUS RHAMNOSUS GG 1 CAPSULE. PO SCH ×2 (09:22→20:14)
[2019-07-05] MEDS: AZITHROMYCIN 250 MG TABLET. PO SCH (09:22)
[2019-07-05] MEDS: hydroCHLOROthiazide 25 MG TABLET PO SCH (09:22)
[2019-07-05] MEDS: CETIRIZINE HCL 10 MG TABLET. PO SCH (09:22)
[2019-07-05] MEDS: amLODIPine BESYLATE 10 MG TABLET PO SCH (09:22)
[2019-07-05] MEDS: LISINOPRIL 20 MG TABLET PO SCH (09:22)
[2019-07-05] MEDS: VENLAFAXINE 75 MG TABLET. PO SCH ×3 (09:22→20:14)
[2019-07-05] MEDS: PANTOPRAZOLE 40 MG TABLET.DR. PO SCH (09:23)
--- NOTE | 2019-07-05 09:30 | PN ---
DATE: 07/05/2019 SUBJECTIVE: The patient is sitting, slightly propped up in bed, in no apparent distress. She continued to have cough and chest pain in the left side. The cough is mostly dry. She has no fever. PHYSICAL EXAMINATION: GENERAL: When I examined her, she looked somewhat pale, but no jaundice, cyanosis, or thyromegaly. No jugular venous distension. No limb edema. VITAL SIGNS: Her heart rate was 75, blood pressure was 126/57, temperature was 98.5, respiratory rate was 20, and oxygen saturation was 96% on 2 liters of oxygen. HEAD, EYES, EARS, NOSE AND THROAT: Showed normocephalic, atraumatic. NECK: Supple. HEART: Showed normal first and second heart sounds. No gallop or murmur. CHEST: Shows central trachea, equally reduced expansion, reduced air entry, vesicular sounds. I could not really appreciate any crepitation or rhonchi. ABDOMEN: Distended, soft, nontender. NEUROLOGIC: She is awake, alert, responding appropriately. All her cranial nerves are intact. She moves extremities without difficulty. She ambulates without assistance or assistive devices. ASSESSMENT: 1. 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 She underwent bronchoscopy and biopsy results are still pending. All the bronchial brushings are negative for any malignant cells. 2. Postobstructive pneumonia. 3. Acute exacerbation of chronic obstructive pulmonary disease. 4. Other medical problems include: A. Hypertension. B. Osteoarthritis. C. Heavy proteinuria. D. History of hoarseness of voice, for which she has had a bronchoscopy done before. E. Abnormal liver enzymes, for which she did hepatitis serology and the results are still pending at the time of this dictation. PLAN: To continue with IV steroids, IV antibiotic, bronchodilators. Await the biopsy results and to decide the further management. REJI MACK MD DR: CALVIN/tairra JOB#: [id number] / [id number]
--- NOTE | 2019-07-05 11:05 | NUR ---
SW following pt. Spoke with RN and pt has home 02. RN denies SW needs.
[2019-07-05 11:20] VITALS: BP 139/73
[2019-07-05 15:54] VITALS: BP 129/66
[2019-07-05 19:40] VITALS: BP 134/76
[2019-07-05] MEDS: PATCH REMOVAL. MC SCH (21:00)
[2019-07-05 23:40] VITALS: BP 139/64
[2019-07-06] MEDS: methylPREDNISolone SOD SUCC PF 40 MG/ML VIAL. IV SCH ×2 (01:47→14:33)
[2019-07-06] MEDS: HYDROcodone/APAP 5/325MG 1 TAB TABLET PO PRN (01:48)
[2019-07-06 03:40] VITALS: BP 131/59
[2019-07-06 05:07] LABS: HEMOGLOBIN 11.4 g/dL (12.0-15.5); RED BLOOD COUNT 3.96 x10^6/uL (3.50-5.40); RED CELL DISTRIBUTION WIDTH 14.7 % (11.5-14.5); WHITE BLOOD COUNT 15.9 x10^3/uL (4.0-11.0)
[2019-07-06] MEDS: MEROPENEM 1 GM in IV NORMAL SALINE 100ML 100 ML IV SCH ×2 (05:34→14:33)
[2019-07-06 05:45] LABS: ALBUMIN 2.2 g/dL (3.4-5.0); ALBUMIN/GLOBULIN RATIO 0.5 (1.0-1.7); CREATININE 0.9 mg/dL (0.6-1.0); POTASSIUM 4.7 mmol/L (3.5-5.1); TOTAL BILIRUBIN 0.1 mg/dL (0.2-1.0); TOTAL PROTEIN 6.9 g/dL (6.4-8.2)
[2019-07-06 07:00] VITALS: BP 150/73
[2019-07-06] MEDS: IPRATRPIUM/ALBUTEROL 0.5/2.5MG 3 ML NEBU. NEB SCH ×3 (07:43→15:29)
[2019-07-06] MEDS: CETIRIZINE HCL 10 MG TABLET. PO SCH (08:22)
[2019-07-06] MEDS: PANTOPRAZOLE 40 MG TABLET.DR. PO SCH (08:22)
[2019-07-06] MEDS: AZITHROMYCIN 250 MG TABLET. PO SCH (08:23)
[2019-07-06] MEDS: VENLAFAXINE 75 MG TABLET. PO SCH ×2 (08:23→14:33)
[2019-07-06] MEDS: LACTOBACILLUS RHAMNOSUS GG 1 CAPSULE. PO SCH (08:23)
[2019-07-06] MEDS: amLODIPine BESYLATE 10 MG TABLET PO SCH (08:24)
[2019-07-06] MEDS: LISINOPRIL 20 MG TABLET PO SCH (08:25)
[2019-07-06] MEDS: ENOXAPARIN 40 MG/0.4 ML SYRINGE. SQ SCH (08:26)
[2019-07-06] MEDS: hydroCHLOROthiazide 25 MG TABLET PO SCH (08:58)
[2019-07-06] MEDS: LIDOCAINE (700MG/PATCH) PATCH. TD SCH (08:58)
--- NOTE | 2019-07-06 10:07 | PATHOLOGY ---
Note [facility] Accession Number: [id number] TESTS RESULT FLAG UNITS REF RANGE LAB Clinician Provided Cytology Information No. of containers..01 Other (Miscellaneous) Source: KEYES NEEDLE DIAGNOSIS: KEYES NEEDLE NEGATIVE FOR MALIGNANT CELLS. ABUNDANT ACUTE INFLAMMATION AND MACROPHAGES ARE PRESENT. PULMONARY MACROPHAGES (DUST CELLS) ARE PRESENT. RARE BRONCHIAL EPITHELIAL CELLS PRESENT COMMENT: Correlate with surgical case [id number] Signed out by: Alexi Goins MD, Pathologist NPI- [id number] Performed by: Cristiane Haley, Reservoir Engineer ([facility]) Gross description: 01 5 ML, COLORESS, CLOUDY /LCS 08/31/1840 0000 Local FLAG LEGEND: L-Low Normal,H-High Normal,LL-Alert Low,HH-Alert High <-Panic Low,>-Panic High,A-Abnormal,AA-Critical Abnormal Performed at: [facility] [address] [place] [address] Gordon Alamo MD, 02 [address] [facility] [address] [place] [address] Chavo Rivas MD, Specimen Comment: A courtesy copy of this report has been sent to [phone] Specimen Comment: [phone] Specimen Comment: Report sent to / DR JIANG Specimen Comment: A duplicate report has been generated due to demographic updates. Performed at: 01 [facility] [address], [place], [place] [id number] MD Gordon Alamo MD Phone: [phone]
--- NOTE | 2019-07-06 10:07 | PATHOLOGY ---
Note [facility] Accession Number: [id number] TESTS RESULT FLAG UNITS REF RANGE LAB Clinician Provided Cytology Information No. of containers..01 Other (Miscellaneous) Source: MIRANDA BAL DIAGNOSIS: MIRANDA BAL NEGATIVE FOR MALIGNANT CELLS. ABUNDANT ACUTE INFLAMMATION AND MACROPHAGES ARE PRESENT. PULMONARY MACROPHAGES (DUST CELLS) ARE PRESENT. RARE BRONCHIAL EPITHELIAL CELLS PRESENT Comment: Correlate with surgical case [id number] Signed out by: Alexi Goins MD, Pathologist NPI- [id number] Performed by: Cristiane Haley, Lube Worker ([facility]) Gross description: 13 ML, PINK, CLUMPY /LCS 08/31/1840 0000 Local FLAG LEGEND: L-Low Normal,H-High Normal,LL-Alert Low,HH-Alert High <-Panic Low,>-Panic High,A-Abnormal,AA-Critical Abnormal Performed at: [facility] [address] [place] [address] Gordon Alamo MD, 02 [address] [facility] [address] [place] [address] Chavo Rivas MD, Specimen Comment: A courtesy copy of this report has been sent to [phone] Specimen Comment: [phone] Specimen Comment: Report sent to / DR JIANG Specimen Comment: A duplicate report has been generated due to demographic updates. Performed at: 01 [facility] [address], [place], [place] [address] MD Gordon Alamo MD Phone: [phone]
[2019-07-06 11:00] VITALS: BP 128/61
[2019-07-06] MEDS ORDERED: HYDR-2761 PO (11:00)
[2019-07-06] MEDS ORDERED: PRED20TA PO (11:00)
[2019-07-06] MEDS ORDERED: LEVO750T31 PO (11:00)
[2019-07-06 15:00] VITALS: BP 144/77
--- NOTE | 2019-07-06 15:54 | PDOC ---
PULMONARY PROGRESS NOTES Subjective PT FEELS BETTER LESS SOA, CHEST PAIN AND COUGH Vitals Vital Signs Date Time Temp Pulse Resp B/P (MAP) Pulse Ox O2 Delivery O2 Flow Rate FiO2 07/06/19 15:31 Room Air 07/06/19 15:00 97.4 75 18 144/77 (99) 96 97.4 07/06/19 08:00 2.0 ROS: No Nausea, No Chest Pain, No Abdominal Pain General: Alert, Oriented X4, No acute distress Lungs: Other (diminished breath sounds left anterior chest) Cardiovascular: S1, S2 Abdomen: Soft Neuro Exam: Alert, Oriented Extremities: No Edema Skin: Warm Labs Laboratory Tests Test 07/06/19 03:59 White Blood Count 15.9 x10^3/uL (4.0-11.0) Red Blood Count 3.96 x10^6/uL (3.50-5.40) Hemoglobin 11.4 g/dL (12.0-15.5) Hematocrit 35.0 % (36.0-47.0) Mean Corpuscular Volume 88 fL (79-100) Mean Corpuscular Hemoglobin 29 pg (25-35) Mean Corpuscular Hemoglobin Concent 33 g/dL (31-37) Red Cell Distribution Width 14.7 % (11.5-14.5) Platelet Count 721 x10^3/uL (140-400) Sodium Level 140 mmol/L (136-145) Potassium Level 4.7 mmol/L (3.5-5.1) Chloride Level 100 mmol/L (98-107) Carbon Dioxide Level 37 mmol/L (21-32) Anion Gap 3 (6-14) Blood Urea Nitrogen 29 mg/dL (7-20) Creatinine 0.9 mg/dL (0.6-1.0) Estimated GFR (Cockcroft-Gault) 65.0 BUN/Creatinine Ratio 32 (6-20) Glucose Level 110 mg/dL (70-99) Calcium Level 9.0 mg/dL (8.5-10.1) Total Bilirubin 0.1 mg/dL (0.2-1.0) Aspartate Amino Transf (AST/SGOT) 43 U/L (15-37) Alanine Aminotransferase (ALT/SGPT) 192 U/L (14-59) Alkaline Phosphatase 171 U/L (46-116) Total Protein 6.9 g/dL (6.4-8.2) Albumin 2.2 g/dL (3.4-5.0) Albumin/Globulin Ratio 0.5 (1.0-1.7) Laboratory Tests Test 07/06/19 03:59 White Blood Count 15.9 x10^3/uL (4.0-11.0) Red Blood Count 3.96 x10^6/uL (3.50-5.40) Hemoglobin 11.4 g/dL (12.0-15.5) Hematocrit 35.0 % (36.0-47.0) Mean Corpuscular Volume 88 fL (79-100) Mean Corpuscular Hemoglobin 29 pg (25-35) Mean Corpuscular Hemoglobin Concent 33 g/dL (31-37) Red Cell Distribution Width 14.7 % (11.5-14.5) Platelet Count 721 x10^3/uL (140-400) Sodium Level 140 mmol/L (136-145) Potassium Level 4.7 mmol/L (3.5-5.1) Chloride Level 100 mmol/L (98-107) Carbon Dioxide Level 37 mmol/L (21-32) Anion Gap 3 (6-14) Blood Urea Nitrogen 29 mg/dL (7-20) Creatinine 0.9 mg/dL (0.6-1.0) Estimated GFR (Cockcroft-Gault) 65.0 BUN/Creatinine Ratio 32 (6-20) Glucose Level 110 mg/dL (70-99) Calcium Level 9.0 mg/dL (8.5-10.1) Total Bilirubin 0.1 mg/dL (0.2-1.0) Aspartate Amino Transf (AST/SGOT) 43 U/L (15-37) Alanine Aminotransferase (ALT/SGPT) 192 U/L (14-59) Alkaline Phosphatase 171 U/L (46-116) Total Protein 6.9 g/dL (6.4-8.2) Albumin 2.2 g/dL (3.4-5.0) Albumin/Globulin Ratio 0.5 (1.0-1.7) Medications Active Scripts Medications Dose Route/Sig Max Daily Dose Days Date Category Loratadine 10 Mg Tablet 10 Mg PO DAILY PRN 07/02/19 Reported Lisinopril 40 Mg Tablet 40 Mg PO DAILY 07/02/19 Reported Hydrochlorothiazide Tablet (Hydrochlorothiazide) 25 Mg Tablet 25 Mg PO DAILY 07/02/19 Reported Amlodipine Besylate 10 Mg Tablet 10 Mg PO DAILY 07/02/19 Reported Albuterol Sulfate Conc Neb Soln (Albuterol Sulfate) 2.5 Mg/0.5 Ml Vial.neb 2.5 Mg NEB Q6HRS 07/02/[address] exam with MIRANDA obstruction and MIRANDA collapse/infiltrate Impression . 1. 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 Postobstructive pneumonia. 3. Acute exacerbation of chronic obstructive pulmonary disease. 4. Tobacco dependence. 5. Other comorbidities as indicated above. 6. Protein malnutrition, present upon admission. 7. Elevated liver chemistries. 8. Leukocytosis. Plan . PT TO D/C TODAY SPOKE WITH DR MACK FOLLOW UP NEXT WEEK PT GIVEN APPOINTMENT WILL NEED PFT, FINAL PATH REPORT MILADY STRONG MD Jul 06, 2019 15:54
--- NOTE | 2019-07-06 16:51 | NUR ---
Discharge Note: FABIANA NORMAN I6 [facility] Discharge instructions and discharge home medications reviewed with Patient and a copy given. All questions have been answered and understanding verbalized. The following instructions and handouts were given: Discharge Instuctions. Follow Up Instructions, Prescriptions. Patient passed 6 minute walk for oxygen and does not need O2 at home. Discontinued lines and drains: PIV removed, Catheter intact. Patient discharged to Home with Self-Care via Private Vehicle
--- NOTE | 2019-07-06 18:49 | DS ---
DATE OF DISCHARGE: 07/06/2019 HOSPITAL COURSE: The patient is resting in the edge of the bed comfortably in no apparent distress. She stated that she is feeling generally much better. Pain is much less, no shortness of breath and she is maintaining her oxygen saturation of 94% on room air. PHYSICAL EXAMINATION: VITAL SIGNS: Her heart rate was 74, blood pressure was 150/73, temperature was 97.5, respiratory rate was 18 and oxygen saturation was 96% on 2 liters of oxygen and 94% on room air. The rest of clinical examination is stable. LABORATORY DATA: Her lab work showed a white cell count down to 15,900, hemoglobin 11, hematocrit 35, MCV was 88 and platelet count of 721,000. Her chemistry is stable with a BUN of 29, creatinine 0.9. DISCHARGE MEDICATIONS: She will be discharged home to continue on a tapering course of steroids hydrocodone 5/325 one tablet every 4 hours as needed together with her home medications that include hydrochlorothiazide 25 mg once a day, Mucinex 600 mg twice a day, amlodipine 10 mg once a day, venlafaxine 75 mg 3 times a day, lisinopril 40 mg once a day and she was discharged on Levaquin 750 mg once a day for 4 more days. She will follow up with Dr. Phillips in 2 weeks' time. Apparently, the Flores needle was negative for malignant cells and the left upper lobe bronchoalveolar lavage was also negative for malignant cells; however, the forceps biopsy results are still pending at the time of this dictation. FINAL DISCHARGE DIAGNOSES: 1. 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 She underwent bronchoscopy and biopsy, the result of the forceps biopsy is still pending at the time of this dictation. 2. Postobstructive pneumonia. 3. Acute exacerbation of chronic obstructive pulmonary disease. Other medical problems include hypertension, osteoarthritis, heavy proteinuria, history of hoarseness of voice, abnormal liver enzymes; however, her serology, hepatitis A, B and C are all negative. She probably has nonalcoholic steatohepatitis. She will see Dr. Phillips in 2 weeks' time. REJI MACK MD DR: CALVIN/tiarra JOB#: [id number] / [id number]
--- NOTE | 2019-07-06 21:05 | PATHOLOGY ---
[facility] Accession Number: [id number] . 01 Material submitted: . bronchus - MIRANDA BBX. Modifiers: left, upper . 01 Clinical history: . Pneumonia . 02 Diagnosis: "BBX", bronchial biopsy: - Bronchial wall with extensive acute and chronic inflammation and granulation tissue with reactive epithelial changes including focally atypical squamous metaplasia. - Fragments of foreign material consistent with vegetable matter. (See comment) . (CLW:mm; 07/05/2019) [facility] 07/05/2019 1608 Local . 02 Comment: No definitive malignancy is seen. The atypical epithelium is favored to be reactive. The foreign material/vegetable particles raise the possibility of aspiration pneumonia. Clinical, radiographic, and bronchoscopic correlation is required. Please see also the cytology specimens ([id number] and [id number]). The case is co-reviewed with Dr. Alexi Goins. . (CLW:mm; 07/05/2019) . 02 Electronically signed: . Sophy Vera MD, Pathologist NPI- [id number] . 01 Gross description: . Received in formalin labeled "Burgy, Iliana, MIRANDA BX," (BBX) are multiple segments of myrick soft tissue measuring 0.4 x 0.2 x 0.1 cm in aggregate dimensions. The specimen is filtered and entirely submitted in cassette A1. (TSD; 07/02/2019) TOB/TOB 07/05/2019 1607 Local . 02 Pathologist provided ICD-10: J20.9, J42 . 02 CPT . 901989 Specimen Comment: A courtesy copy of this report has been sent to [phone] Specimen Comment: [phone] Specimen Comment: Report sent to / DR JIANG Performed at: 01 [facility] [address] [place] [address] [address], [place] [id number] MD Gordon Alamo MD Phone: [phone] Performed at: 02 [facility] [address] [place], [place] [id number] MD Chavo Rivas MD Phone: [phone]
== END 2019-07-06 18:07 | disposition home or self-care (01) | DRG 177 ==
LOC: 6 SOUTH 19:42
PROVIDERS: ADMIT Internal Medicine; ATTEND Internal Medicine
PROC: 0B988ZX Drainage of Left Upper Lobe Bronchus, Via Natural or Artificial Opening Endoscopic, Diagnostic (ICD-10-PCS; 2019-07-02)
PROC: 0BB88ZX Excision of Left Upper Lobe Bronchus, Via Natural or Artificial Opening Endoscopic, Diagnostic (ICD-10-PCS; principal; 2019-07-02 12:00)
DX: J15.6 Pneumonia due to other Gram-negative bacteria (principal); E43 Unspecified severe protein-calorie malnutrition; J44.1 Chronic obstructive pulmonary disease with (acute) exacerbation; J44.0 Chronic obstructive pulmonary disease with (acute) lower respiratory infection; F17.210 Nicotine dependence, cigarettes, uncomplicated; I10 Essential (primary) hypertension; K75.81 Nonalcoholic steatohepatitis (NASH); M19.90 Unspecified osteoarthritis, unspecified site; F32.9 Major depressive disorder, single episode, unspecified; F41.9 Anxiety disorder, unspecified; G89.29 Other chronic pain; Z82.49 Family history of ischemic heart disease and other diseases of the circulatory system; Z88.0 Allergy status to penicillin; Z90.49 Acquired absence of other specified parts of digestive tract; Z98.1 Arthrodesis status; Z88.2 Allergy status to sulfonamides; Z88.8 Allergy status to other drugs, medicaments and biological substances
CPT/HCPCS: 31622; 36415; 80048; 80053; 85007; 85025; 85027; 85610; 85730; 86705; 86709; 86803; 87070; 87102; 87116; 87205; 87252; 87340; 88112; 88173; 88305; 94618; 94640; J0171; J1650; J2185; J2270; J2704; J2920; J7120; J7613; J7620; Q0144; G0378